=== PATIENT | male | born 1960 | race Caucasian/White ===

== ENCOUNTER 2017-06-30 20:33 | Observation (INO) ==
[2017-06-30] MEDS ORDERED: Nitroglycerin 1 INCH/GM PACKET TP ONE (20:38)
[2017-06-30] MEDS ORDERED: 0.9 % Sodium Chloride 500 ML IVC ONE (20:38)
--- NOTE | 2017-06-30 20:39 | Emergency Department Note ---
Disposition Clinical Impression: Chest pain Qualifiers: Chest pain type: precordial pain Qualified Code(s): R07.2 - Precordial pain Disposition: Admitted As Inpatient Condition: Fair Referrals: Claudette Heaton CNP [Primary Care Provider] - Forms: ED Satisfaction Letter Chest Pain HPI - General Chief Complaint: ED Chest Pain Stated Complaint: chest pain Time Seen by Provider: 06/30/17 20:34 Source: patient, EMS Mode of arrival: EMS Limitations: no limitations Vital Signs Reviewed: Yes Nursing Notes Reviewed: Yes - History of Present Illness HPI Narrative: Patient states that he started "not feeling good" at about 7:30 PM this evening. He states he had a tight feeling in his chest going to his left arm. With this he states he got sweaty and short of breath. He denies any associated nausea, cough, fevers, chills or any lower extremity complaints. Denies anything his pain is better worse included administration of aspirin and nitroglycerin by EMS. He has not had any pain or colitis before and denies any cardiac history. Denies any abdominal pains or troubles nor back pain. He does have a history of hypertension and smoking. He denies coronary disease, but cholesterol, diabetes, obesity or history of DVT or PE. snf advises he has a history of elevated cholesterol but he has preop physical from June 11 does not include anything but his hypertension and that he does have a history of COPD. He states his father had history of heart disease. He relates he continues with pain at a 9 on a scale of 1-10. He arrives with a heart rate of 75, oxygen of 100% on room air and a blood pressure of 110/79. Pt complaint: chest pain Onset (ago): hour(s) (1) Duration: constant Onset: during rest Pain Location: substernal Severity: moderate, severe Severity scale (1-10): 9 Quality: tightness, aching Pain Radiation: LUE Improves with: nothing Worsens with: nothing Associated symptoms: Reports: diaphoresis, dyspnea. Denies: nausea, vomiting, syncope, palpitations, fever, cough, leg swelling Treatments prior to arrival chest pain: aspirin, nitroglycerin, oxygen - Related Data Home Medications Medication Instructions Recorded Confirmed hydroCHLOROthiazide 25 mg PO DAILY 12/22/16 06/30/17 [Hydrochlorothiazide] Albuterol Sulfate [Ventolin Hfa] 2 puff IH Q4H PRN 06/11/17 06/30/17 Previous Rx's Medication Instructions Recorded Oxycodone HCl 5 mg PO Q6H PRN #28 tablet 06/14/17 clonazePAM [Klonopin] 1 mg PO BID #3 tablet 06/14/17 Allergies Allergy/AdvReac Type Severity Reaction Status Date / Time No Known Allergies Allergy Verified 06/11/17 06:49 All systems ED: reviewed and negative except as stated. Chest Pain PMH - Past Medical History Medical history: Reports: arthritis, hypertension, other (Chronic low back pain , chronic pain) Surgical history: Reports: knee replacement, other (Cervical laminectomies C3-C7 ) Psychiatric history: Reports: anxiety - Social History Smoking Status: Current every day smoker Alcohol use: Reports: none Drug use: Reports: none Physical Exam - General Limitations: no limitations General appearance: alert, in no apparent distress, anxious - Head Head exam: atraumatic, normocephalic, normal inspection - Eye Eye exam: Present: normal appearance, PERRL, EOMI. Absent: conjunctival injection - ENT ENT exam: normal exam, normal oropharynx, mucous membranes moist - Neck Neck exam: Present: normal inspection, full ROM, trachea midline - Chest Chest inspection: Present: normal inspection, symmetric chest wall rise - Respiratory Respiratory exam: Present: normal lung sounds bilaterally. Absent: respiratory distress, wheezes, prolonged expiratory phase - Cardiovascular Cardiovascular exam: Present: regular rate, normal rhythm, normal heart sounds. Absent: tachycardia, JVD - Abdominal Exam Abdominal exam: Present: soft, Non-Tender, normal bowel sounds. Absent: tenderness, distention, guarding, rebound, rigidity - Extremities Exam Extremities exam: Present: normal inspection, full ROM, normal capillary refill. Absent: tenderness, pedal edema, calf tenderness - Expanded Lower Extremity Exam Neurovascular/Tendon exam: Present: normal capillary refill. Absent: motor deficit, sensory deficit, tendon deficit Gait: not tested/not observed - Neurological Exam Neurological exam: Present: alert, oriented X3 - Psychiatric Psychiatric exam: Present: normal affect, anxious - Skin Skin exam: Present: warm, dry, intact, normal color. Absent: rash, cyanosis, diaphoresis, pallor Course Course Narrative: 2109: Given the patient's elevated d-dimer and continued pain, Dilaudid, Zofran , Ativan and IV fluids up and continued. A CT PE study has been ordered. 2220: Care has been discussed with the patient and with Dr. Mckenna. Patient continues with some chest pain but he is resting quite comfortably. He currently is on a rate of 66, respiratory rate of 14, blood pressure 104/63. Saturation 99%. Dr. Mckenna is comfortable with watching this patient in the department if a repeat troponin is not showing significant elevation. We have contacted laboratory draw the second troponin and the patient understands the plan. Vital Signs Temperature 98 F 06/30/17 20:35 Pulse Rate 84 06/30/17 20:35 Respiratory Rate 18 06/30/17 20:35 Blood Pressure 110/79 06/30/17 20:35 O2 Sat by Pulse Oximetry 99 06/30/17 20:35 Temperature 98 F 06/30/17 20:35 Pulse Rate 68 06/30/17 22:13 Respiratory Rate 16 06/30/17 22:13 Blood Pressure 109/74 06/30/17 22:13 O2 Sat by Pulse Oximetry 99 06/30/17 22:13 Oxygen Delivery Oxygen Delivery Nasal Cannula Chest Pain - Differential Diagnosis Likely: atypical chest pain, costalchondritis, chest pain - Medical Records Medical records reviewed: Yes I reviewed the patient's medical records. - Lab Data Lab results reviewed: Yes I reviewed the patient's lab results. Result diagrams: 06/30/17 20:50 06/30/17 20:50 Lab Results 06/30/17 06/30/17 06/30/17 Range/Units 20:50 20:50 20:50 WBC (4.3-11.1) K/mcL RBC (4.19-5.50) M/mcL Hgb (12.9-16.9) g/dL Hct (37.5-50.1) % MCV (83.0-100.0) fL MCH (28.0-33.3) pg MCHC (31.6-35.5) g/dL RDW (11.5-14.5) % Plt Count (140-400) K/mcL MPV (9.4-12.4) fL Immature Gran % (0-4) % Seg Neutrophils % % Lymphocytes % % Monocytes % % Eosinophils % % Basophils % % Neutrophils # (1.6-8.9) K/mcL Lymphocytes # (0.6-4.6) K/mcL Monocytes # (0.0-1.3) K/mcL Eosinophils # (0.0-0.6) K/mcL Basophils # (0.0-0.2) K/mcL PT 10.8 (9.4-12.1) Seconds INR 1.0 APTT 30.6 (26.0-36.0) Seconds D-Dimer 991 H (0-500) ng/mLFEU Sodium (136-145) mEq/L Potassium (3.5-4.5) mEq/L Chloride (98-109) mEq/L Carbon Dioxide (19-29) mEq/L BUN (8-26) mg/dL Creatinine (0.72-1.25) mg/dL Est GFR ( Amer) (> 60) Est GFR (Non-Af Amer) (> 60) BUN/Creatinine Ratio (6-26) Glucose (70-99) mg/dL Calculated Osmolality (280-300) Calcium (8.6-10.8) mg/dL Total Bilirubin 0.2 (0.2-1.2) mg/dL Direct Bilirubin 0.1 (0.0-0.5) mg/dL Indirect Bilirubin 0.1 (0.0-1.2) mg/dL AST 14 (5-34) Units/L ALT 8 (0-55) Units/L Alkaline Phosphatase 75 (38-126) Units/L Troponin I (0-0.03) ng/mL B-Natriuretic Peptide 11 (0-100) pg/mL Serum Total Protein 6.2 (6.0-8.3) g/dL Albumin 3.0 L (3.5-5.0) g/dL Globulin 3.2 (2.4-3.5) g/dL Albumin/Globulin Ratio 0.9 L (1.1-2.2) 06/30/17 06/30/17 06/30/17 Range/Units 20:50 20:50 20:50 WBC 8.9 (4.3-11.1) K/mcL RBC 4.43 (4.19-5.50) M/mcL Hgb 13.7 (12.9-16.9) g/dL Hct 40.0 (37.5-50.1) % MCV 90.3 (83.0-100.0) fL MCH 30.9 (28.0-33.3) pg MCHC 34.3 (31.6-35.5) g/dL RDW 12.6 (11.5-14.5) % Plt Count 378 (140-400) K/mcL MPV 8.5 L (9.4-12.4) fL Immature Gran % 0.1 (0-4) % Seg Neutrophils % 41.0 % Lymphocytes % 45.5 % Monocytes % 7.2 % Eosinophils % 5.2 % Basophils % 1.0 % Neutrophils # 3.6 (1.6-8.9) K/mcL Lymphocytes # 4.0 (0.6-4.6) K/mcL Monocytes # 0.6 (0.0-1.3) K/mcL Eosinophils # 0.5 (0.0-0.6) K/mcL Basophils # 0.1 (0.0-0.2) K/mcL PT (9.4-12.1) Seconds INR APTT (26.0-36.0) Seconds D-Dimer (0-500) ng/mLFEU Sodium 139 (136-145) mEq/L Potassium 3.5 (3.5-4.5) mEq/L Chloride 103 (98-109) mEq/L Carbon Dioxide 27 (19-29) mEq/L BUN 14 (8-26) mg/dL Creatinine 0.80 (0.72-1.25) mg/dL Est GFR ( Amer) > 60 (> 60) Est GFR (Non-Af Amer) > 60 (> 60) BUN/Creatinine Ratio 18 (6-26) Glucose 102 H (70-99) mg/dL Calculated Osmolality 289 (280-300) Calcium 9.0 (8.6-10.8) mg/dL Total Bilirubin (0.2-1.2) mg/dL Direct Bilirubin (0.0-0.5) mg/dL Indirect Bilirubin (0.0-1.2) mg/dL AST (5-34) Units/L ALT (0-55) Units/L Alkaline Phosphatase (38-126) Units/L Troponin I 0.00 (0-0.03) ng/mL B-Natriuretic Peptide (0-100) pg/mL Serum Total Protein (6.0-8.3) g/dL Albumin (3.5-5.0) g/dL Globulin (2.4-3.5) g/dL Albumin/Globulin Ratio (1.1-2.2) 06/30/17 Range/Units 22:36 WBC (4.3-11.1) K/mcL RBC (4.19-5.50) M/mcL Hgb (12.9-16.9) g/dL Hct (37.5-50.1) % MCV (83.0-100.0) fL MCH (28.0-33.3) pg MCHC (31.6-35.5) g/dL RDW (11.5-14.5) % Plt Count (140-400) K/mcL MPV (9.4-12.4) fL Immature Gran % (0-4) % Seg Neutrophils % % Lymphocytes % % Monocytes % % Eosinophils % % Basophils % % Neutrophils # (1.6-8.9) K/mcL Lymphocytes # (0.6-4.6) K/mcL Monocytes # (0.0-1.3) K/mcL Eosinophils # (0.0-0.6) K/mcL Basophils # (0.0-0.2) K/mcL PT (9.4-12.1) Seconds INR APTT (26.0-36.0) Seconds D-Dimer (0-500) ng/mLFEU Sodium (136-145) mEq/L Potassium (3.5-4.5) mEq/L Chloride (98-109) mEq/L Carbon Dioxide (19-29) mEq/L BUN (8-26) mg/dL Creatinine (0.72-1.25) mg/dL Est GFR ( Amer) (> 60) Est GFR (Non-Af Amer) (> 60) BUN/Creatinine Ratio (6-26) Glucose (70-99) mg/dL Calculated Osmolality (280-300) Calcium (8.6-10.8) mg/dL Total Bilirubin (0.2-1.2) mg/dL Direct Bilirubin (0.0-0.5) mg/dL Indirect Bilirubin (0.0-1.2) mg/dL AST (5-34) Units/L ALT (0-55) Units/L Alkaline Phosphatase (38-126) Units/L Troponin I 0.00 (0-0.03) ng/mL B-Natriuretic Peptide (0-100) pg/mL Serum Total Protein (6.0-8.3) g/dL Albumin (3.5-5.0) g/dL Globulin (2.4-3.5) g/dL Albumin/Globulin Ratio (1.1-2.2) - Radiology Data Radiology results reviewed: Yes I reviewed the patient's radiology results. Single view chest x-ray is performed. This does not demonstrate evidence for infiltrate, effusion, pneumothorax, foreign body or heart failure. The cardiac silhouette is normal. I do not see abnormality to the osseous structures of the chest. This is on my interpretation. CT PE study was performed. This does not show evidence for acute infiltrates, effusion, pneumothorax, pericardial effusion nor central pulmonary emboli. This is on my interpretation. Impressions Chest X-Ray 06/30/17 20:38 IMPRESSION: No acute cardiopulmonary disease. D/ / Stephen Montana MD / Stephen Montana MD Interpreting Provider: Stephen Montana MD Chest CTA 06/30/17 21:13 IMPRESSION: 1. No pulmonary embolism. 2. No other significant findings in the chest. D/ / David Diallo MD / David Diallo MD Interpreting Provider: David Diallo MD - EKG Data EKG attestation: Yes I reviewed and interpreted this EKG. EKG shows normal: sinus rhythm, axis, intervals, QRS complexes, ST-T waves Rate: normal (77) Interpretation: no acute changes Heart Score - Score History: Moderately Suspicious EKG: Normal Age: 45-65 Risk Factors: 1-2 risk factors Troponin: Less than normal limit HEART Score Total: 3
[2017-06-30 20:56] LABS: Basophils # 0.1 K/mcL (0.0-0.2); Eosinophils # 0.5 K/mcL (0.0-0.6); Eosinophils % 5.2 %; Hemoglobin 13.7 g/dL (12.9-16.9); Immature Granulocytes % 0.1 % (0-4); Lymphocytes % 45.5 %; Mean Corpuscular HGB Conc 34.3 g/dL (31.6-35.5); Mean Corpuscular Hemoglobin 30.9 pg (28.0-33.3); Mean Corpuscular Volume 90.3 fL (83.0-100.0); Mean Platelet Volume 8.5 fL (9.4-12.4); Monocytes # 0.6 K/mcL (0.0-1.3); Monocytes % 7.2 %; Neutrophils # 3.6 K/mcL (1.6-8.9); Platelet Count 378 K/mcL (140-400); Red Blood Count 4.43 M/mcL (4.19-5.50); Red Cell Distribution Width 12.6 % (11.5-14.5)
[2017-06-30 21:02] LABS: Prothrombin Time 10.8 Seconds (9.4-12.1)
[2017-06-30 21:04] LABS: Activated Partial Thrombo Time 30.6 Seconds (26.0-36.0)
[2017-06-30 21:09] LABS: BUN/Creatinine Ratio 18 (6-26); Blood Urea Nitrogen 14 mg/dL (8-26); Carbon Dioxide 27 mEq/L (19-29); Chloride 103 mEq/L (98-109); Glucose 102 mg/dL (70-99); Osmolality,Calculated 289 (280-300); Potassium 3.5 mEq/L (3.5-4.5); Sodium 139 mEq/L (136-145); eGFR For African Americans > 60 (> 60); eGFR For Non-African Americans > 60 (> 60)
[2017-06-30 21:12] LABS: Albumin/Globulin Ratio 0.9 (1.1-2.2); Bilirubin,Direct 0.1 mg/dL (0.0-0.5); Bilirubin,Indirect 0.1 mg/dL (0.0-1.2); Bilirubin,Total 0.2 mg/dL (0.2-1.2); Globulin 3.2 g/dL (2.4-3.5); Total Protein 6.2 g/dL (6.0-8.3)
[2017-06-30] MEDS ORDERED: *HR* HYDROmorphone (PF) 1 MG/ML SYRINGE IVP ONE (21:13)
[2017-06-30] MEDS ORDERED: Ondansetron 4 MG/2 ML VIAL IVP ONE (21:13)
[2017-06-30] MEDS ORDERED: *HR* LORazepam 2 MG/ML VIAL IVP ONE (21:14)
[2017-06-30] MEDS ORDERED: 0.9 % Sodium Chloride 1,000 ML IVC SCH (21:15)
[2017-06-30] MEDS ORDERED: *HR* HYDROmorphone (PF) 1 MG/ML SYRINGE IVP PRN (23:23)
[2017-06-30] MEDS ORDERED: Dextrose Gel 15 GM PO PRN ×2 (23:23)
[2017-06-30] MEDS ORDERED: D5% in Water 1,000 ML IVC PRN (23:23)
[2017-06-30] MEDS ORDERED: MOM Conc 10 ML UD.LIQ PO PRN (23:23)
[2017-06-30] MEDS ORDERED: Ondansetron 4 MG/2 ML VIAL IVP PRN (23:23)
[2017-06-30] MEDS ORDERED: Naloxone 0.4 MG/ML INJ IVP PRN (23:23)
[2017-06-30] MEDS ORDERED: *HR* Dextrose 50 % in Water (Syg) 50 ML SYRINGE IVP PRN (23:23)
[2017-07-01] MEDS: 0.9 % Sodium Chloride 1,000 ML IVC SCH ×3 (00:39→13:39)
[2017-07-01] MEDS: Nitroglycerin 1 INCH/GM PACKET TP SCH ×2 (06:16→16:03)
[2017-07-01] MEDS ORDERED: Insulin LISPRO 300 UNITS/3 ML VIAL SQ SCH (07:30)
[2017-07-01] MEDS: *HR* OxyCODONE Immed Rel 5 MG TABLET PO PRN ×2 (08:22→14:26)
[2017-07-01] MEDS ORDERED: hydroCHLOROthiazide 25 MG TABLET PO SCH (09:00)
[2017-07-01] MEDS ORDERED: clonazePAM 0.5 MG TABLET PO SCH (09:00)
[2017-07-01 10:30] VITALS: BP 108/66
--- NOTE | 2017-07-01 15:33 | Internal Med History&Physical ---
Date of Encounter: 07/01/17 Time of Encounter: 15:00 Assessment and Plan (1) Chest pain Current visit: Yes Status: Acute Doubt myocardial ischemic pain from history and physical. Suspect chest wall origin. Repeat cardiac enzymes were ordered through emergency room. Qualifiers: Chest pain type: precordial pain Qualified Code(s): R07.2 - Precordial pain Internal Medicine - H&P: HPI Chief complaint: Chest pain Admitted From: Long-term Nursing Facility Plans for Post Hospital Care: Transfer Cuff Folder Care History of present illness: Mr. Johnson is a 57 year old male who came to emergency room after he reported developing sudden onset of sharp chest pain while at leisure at the intermediate. He became diaphoretic and had dyspnea associated. He was evaluated in emergency room and admitted to [facility] floor for ongoing care needs. He denies previous similar pain. He states the pain has significantly improved at present time but is not completely resolved. He has a history of hypertension but no known VT heart failure DVT or pulmonary embolus. He had a heart catheter 2002 which was negative. He had a Regadenoson stress test January 2013 at [facility] which did not show ischemia. Past Med Surg Social Fam HX - Past Medical History Medical history: arthritis, hypertension, other Psychiatric history: anxiety - Past Surgical History Surgical History: knee replacement, other - Social History Smoking Status: Current every day smoker Packs per day: 1/2 Smokeless Tobacco Status: No Alcohol use: none Drug use: none - Family History Mother Hx Family Endocrine Disorder: Yes (diabetes) Father Adopted: No Family Member Ethnicity: Non- Living Status: Still Living Hx Family Cardiac Disorders: Yes Hx Family Respiratory Disorders: No Hx Family Cancer: No Hx Family GI Disorders: No Hx Family Endocrine Disorder: No Hx Family Neuromuscular Disorders: No Hx Family Neurologic Disorders: No Hx Family HEENT Disorders: No Hx Family Autoimmune Disorders: No Brother Adopted: No Living Status: Still Living Hx Family Cardiac Disorders: No Hx Family Respiratory Disorders: No Hx Family Cancer: No Hx Family GI Disorders: No Hx Family Endocrine Disorder: No Hx Family Neuromuscular Disorders: No Hx Family Neurologic Disorders: No Hx Family HEENT Disorders: No Hx Family Autoimmune Disorders: No Internal Medicine - H&P: Meds hydroCHLOROthiazide [Hydrochlorothiazide] 25 mg PO DAILY 12/22/16 [History] Albuterol Sulfate [Ventolin Hfa] 2 puff IH Q4H PRN 06/11/17 [History] Oxycodone HCl 5 mg PO Q6H PRN #28 tablet 06/14/17 [Rx] clonazePAM [Klonopin] 1 mg PO BID #3 tablet 06/14/17 [Rx] 3 Allergy/AdvReac Type Severity Reaction Status Date / Time No Known Allergies Allergy Verified 06/11/17 06:49 All Systems PM: A 10-system review of systems was performed and is negative for pertinent findings except as documented above in the HPI. Review of systems: Review of systems from his April 2016 [facility] hospitalization were reviewed and revised as below. Gen.: His weight has increased from 64.467 kg on 05/18/2016 to 74.389 kg now Cardiovascular: Per history of present illness Respiratory: He has smoked since age 13 up to 1 pack per day. He had PFTs in 2008 showed mild obstructive lung disease. He does not wear home oxygen and has not been tested for sleep apnea GI: He was transferred from [facility] to [facility] April 2016 for possible liver mass. He reports he was diagnosed with hepatitis C and given treatment and is now free of the virus. He denies other disorders of his liver gallbladder or exocrine pancreas. : He denies hematuria dysuria or kidney stones Neurologic: He has not had large distribution strokes or seizures. He does have a diagnosis of benign essential tremor. Endocrine: He denies diabetes or thyroid disease or hyperlipidemia Hematology/oncology: He denies blood disorders cancers or anemia Psychiatric: He has depression and anxiety but denies other mental health issues. [place] skeletal: He had left total knee replacement [address] Roberts. He had left ankle fracture remotely. He had cervical spine surgery approximately 3 weeks ago as well as cervical radiculopathy surgery for DJD several years ago. He denies gout or other bone joint or muscle disorders. - Constitutional Vitals: Temp Pulse Resp BP Pulse Ox 97.4 F L 81 16 108/66 97 07/01/17 10:30 07/01/17 10:30 07/01/17 10:30 07/01/17 10:30 07/01/17 10:30 Exam: Gen.: He is a well-developed well-nourished male who appears in no acute distress at present time HEENT: Head is atraumatic and normocephalic. Eyes: EOMI. There is no scleral icterus. Mouth: Mucosa is moist. Neck: Supple and nontender. There is no thyromegaly or adenopathy noted. Heart: Regular without murmurs gallops or ectopics Lungs: No wheezes or crackles are heard. Chest: He has tenderness in his left chest wall to palpation stating "that is the pain" on chest wall compression. Abdomen: Soft and nontender. No masses or guarding are noted. Extremities: There is no cyanosis edema or clubbing noted. Dorsalis pedis and posttibial pulses are trace palpable bilaterally. Neurologic: Mental status: He is talkative and a good historian. Cranial nerves : Smile is symmetric. Forehead wrinkles bilaterally. Tongue protrudes midline. EOMI. Motor: There is no pronator drift. Cerebellar: Finger to nose is intact bilaterally. Skin: Warm and dry Internal Med - H&P Results - Labs CBC & Chem 7: 06/30/17 20:50 06/30/17 20:50 Labs: Cardiac Enzymes 07/01/17 07/01/17 Range/Units 03:23 09:26 Troponin I 0.00 0.00 (0-0.03) ng/mL
--- NOTE | 2017-07-01 15:46 | Discharge Summary ---
Date of Encounter: 07/01/17 Time of Encounter: 15:00 - Discharge Diagnosis (1) Chest pain Priority: Primary Status: Acute Qualifiers: Chest pain type: precordial pain Qualified Code(s): R07.2 - Precordial pain - Discharge Medications Prescriptions: Naproxen [Naprosyn] 500 mg PO BID PRN 7 Days tablet PRN Reason: Pain Home Medications: hydroCHLOROthiazide [Hydrochlorothiazide] 25 mg PO DAILY 12/22/16 [History] Albuterol Sulfate [Ventolin Hfa] 2 puff IH Q4H PRN 06/11/17 [History] Oxycodone HCl 5 mg PO Q6H PRN #28 tablet 06/14/17 [Rx] clonazePAM [Klonopin] 1 mg PO BID #3 tablet 06/14/17 [Rx] Naproxen [Naprosyn] 500 mg PO BID PRN 7 Days tablet 07/01/17 [Rx] Allergies/Adverse Reactions: 3 Allergy/AdvReac Type Severity Reaction Status Date / Time No Known Allergies Allergy Verified 06/11/17 06:49 Date of admission: 06/30/17 23:10 Primary care physician: Claudette Heaton CNP Consults: 06/30/17 23:46 Consult to Nutrition [CONS] Routine Comment: Consulting Provider: NUTRITION Reason for Dietary Consult: MST Score - Patient Status Disposition: Transfer SNF Condition: Fair Functional capacity at discharge: independent ambulation Overall status at discharge: patient is progressing back to baseline - Discharge Instructions - Diet and Activity Activity: resume usual activities as tolerated Diet: advance to your usual diet Hospital course: Mr. Johnson is a 57 year old male who came to emergency room after he reported developing sudden onset of sharp chest pain while at leisure at the long term. He became diaphoretic and had dyspnea associated. He was evaluated in emergency room and admitted to [facility] for ongoing care needs. Initial orders were written by the emergency room physician. I saw him on July 01 and performed a history and physical and discharge. Repeat cardiac enzymes showed no evidence of myocardial damage. When I saw him the chest pain was reproduced by pressing on his chest wall. I felt he could be discharged back to [facility] without further workup being done. He will be given Naprosyn prior to leaving the hospital and will have Naprosyn available prn at the long term. He will follow with Dr. Squires at [facility]. - Time Spent with Patient Total time spent providing and/or coordinating discharge services: - Constitutional Vitals: Temp Pulse Resp BP Pulse Ox 97.4 F L 81 16 108/66 97 07/01/17 10:30 07/01/17 10:30 07/01/17 10:30 07/01/17 10:30 07/01/17 10:30
--- NOTE | 2017-07-01 15:50 | Physician Discharge Referral ---
ExtendedCare Referral Info Transfer To: [facility] Provider in Charge: Bala Provider in Charge after Transfer: PCP (Kofi Squires M.D.) - Diagnosis (1) Chest pain Priority: Primary Status: Acute Prognosis: Good Aware of Diagnosis: Patient Aware of Prognosis: Patient - Transfer Medications Prescriptions: Naproxen [Naprosyn] 500 mg PO BID PRN 7 Days tablet PRN Reason: Pain Home Medications: hydroCHLOROthiazide [Hydrochlorothiazide] 25 mg PO DAILY 12/22/16 [History] Albuterol Sulfate [Ventolin Hfa] 2 puff IH Q4H PRN 06/11/17 [History] Oxycodone HCl 5 mg PO Q6H PRN #28 tablet 06/14/17 [Rx] clonazePAM [Klonopin] 1 mg PO BID #3 tablet 06/14/17 [Rx] Naproxen [Naprosyn] 500 mg PO BID PRN 7 Days tablet 07/01/17 [Rx] Allergies/Adverse Reactions: 3 Allergy/AdvReac Type Severity Reaction Status Date / Time No Known Allergies Allergy Verified 06/11/17 06:49 - Respiratory Orders Smoking Cessation: Smoking cessation has been advised. For more information, call the [place] Tobacco Quit Line at 9-890-ZGVSNOW. - Mobility Orders Ambulate - Rehabiliation Orders Rehab Potential: Good - Diet Orders Regular CERTIFICATION: I certify that the transfer of the above named patient to an Extended Care Facility is necessary for the continuing treatment of the diagnosis listed. The above information is true and accurate reflection of patient's current condition. Confidential - Redisclosure prohibited without a patient's written consent.
--- NOTE | 2017-07-02 17:06 | Electrocardiograph Report ---
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
== END 2017-07-01 17:40 ==
LOC: EMEROOPIK 20:33 → INPPIK 20:33
PROVIDERS: ADMIT Internal Medicine; ATTEND Internal Medicine